=== PATIENT | female | born 2000 | race African-American/Black ===

== ENCOUNTER 2020-12-01 06:45 | Emergency (ER) | payer OTHER ==
[~2020-12-01] VITALS: Ht 162.6 cm; Wt 61.8 kg
[2020-12-01 07:40] LABS: BASO % 0.6 % (0.0-1.0); EOS # 0.1 10^3/uL (0.0-0.5); EOS % 2.3 % (0.0-3.0); HEMATOCRIT 37.6 % (36.0-47.0); HEMOGLOBIN 12.5 g/dl (12.0-15.5); LYMPH # 0.9 10^3/uL (1.5-5.0); LYMPH % 18.9 % (24.0-44.0); MEAN CORPUSCULAR HEMOGLOBIN 30.6 pg (27.0-33.0); MEAN CORPUSCULAR HGB CONC 33.2 g/dl (32.0-36.5); MEAN CORPUSCULAR VOLUME 91.9 fl (80.0-96.0); MONO # 0.4 10^3/uL (0.0-0.8); NEUTROPHILS # 3.3 10^3/uL (1.5-8.5); NEUTROPHILS % 68.8 % (36.0-66.0); PLATELET COUNT, AUTOMATED 184 10^3/uL (150-450); RED BLOOD COUNT 4.09 10^6/uL (4.00-5.40); WHITE BLOOD COUNT 4.8 10^3/uL (4.0-10.0)
[2020-12-01] MEDS ORDERED: NS 1,000 ML IV ONE (07:55)
--- NOTE | 2020-12-01 08:36 | REP ---
INDICATION: VB pain COMPARISON: None. TECHNIQUE: Transabdominal 1st trimester obstetrical ultrasound with color Doppler evaluation. FINDINGS: Single live early intrauterine is appreciated. Gestational sac with yolk sac and pole identified. Lawtey-rump length of 2.4 cm corresponds to 9 weeks 1 day gestational age with estimated date of delivery 07/05/2021. heart rate equals 172 beats per minute. Small/moderate subchorionic hemorrhage identified which is difficult to quantify. IMPRESSION: 1. Single live early intrauterine at 9 weeks 1 day gestational age. 2. Small/moderate subchorionic hemorrhage is suggested which is difficult to quantify and may warrant follow-up examination. 3. Complete anatomical assessment should be performed and 19-20 weeks. <Electronically signed by Randy Ca > 12/01/20 2521
[2020-12-01 09:02] LABS: HCG, SERUM QUALITATIVE POSITIVE (NEGATIVE)
[2020-12-01 09:04] LABS: ALBUMIN 3.3 GM/DL (3.2-5.2); ALT/SGPT 18 U/L (12-78); BILIRUBIN,DIRECT < 0.1 MG/DL (0.0-0.2); BILIRUBIN,TOTAL 0.1 MG/DL (0.2-1.0); LIPASE 125 U/L (73-393); TOTAL PROTEIN 6.8 GM/DL (6.4-8.2)
[2020-12-01 09:45] VITALS: BP 129/82
== END 2020-12-01 10:07 | disposition home or self-care (01) ==
LOC: M ED 06:45
DX: O20.0 Threatened abortion (principal); O36.8910 Maternal care for other specified fetal problems, first trimester, not applicable or unspecified; Z3A.09 9 weeks gestation of pregnancy